=== PATIENT | male | born 1990 | race Caucasian/White ===

== ENCOUNTER 2021-03-13 19:00 | Emergency (ER) | payer OTHER, BC, SELFPAY ==
--- NOTE | ~2021-03-13 | XR_ITS ---
XR shoulder RT min 2V DATE: 03/13/2021 20:05 INDICATION: Right shoulder pain. Previous rotator cuff surgery. TECHNIQUE: 4 views COMPARISON: None FINDINGS: No fracture or dislocation, periosteal reaction or bone destruction. No abnormal soft tissu e calcification. IMPRESSION: No significant abnormality Reviewed, dictated and finalized at location [facility]. IMPRESSION: No significant abnormality
[2021-03-13 19:19] VITALS: BP 138/94; PULSE 125; RESP 16; TEMP 36.7; O2SAT 99
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
[2021-03-13 20:43] VITALS: BP 140/104; PULSE 102; RESP 18; O2SAT 100
== END 2021-03-13 20:42 | disposition home or self-care (01) ==
PROVIDERS: Emergency Provider Nurse Practitioner
DX: M25.511 Pain in right shoulder (principal); V28.4XXA Motorcycle driver injured in noncollision transport accident in traffic accident, initial encounter
CPT/HCPCS: 73030; 99283

== ENCOUNTER 2022-02-18 10:41 | Emergency (ER) | payer OTHER, BC, SELFPAY ==
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
[2022-02-18 10:49] VITALS: BP 120/91; PULSE 112; RESP 16; TEMP 36.2; O2SAT 98
== END 2022-02-18 11:28 | disposition short-term general hospital (02) ==
PROVIDERS: Emergency Provider Nurse Practitioner Family
DX: E86.0 Dehydration (principal)
CPT/HCPCS: 81003; 99212; G0463

== ENCOUNTER 2022-02-18 11:51 | Emergency (ER) | payer OTHER, BC, SELFPAY ==
--- NOTE | 2022-02-18 12:16 | ECG_ITS ---
Measurements Intervals [place] Rate: 94 P: 48 KS: 136 QRS: 43 QRSD: 98 T: 32 QT: 375 QTc: 470 Interpretive Statements SINUS RHYTHM BORDERLINE T WAVE ABNORMALITY- ANTERIOR LEADS BASELINE ARTIFACT- V2 BORDERLINE ECG Electronically Signed On 02-18-2022 12:41:19 CDT by Toñito Lawton D.O.
[2022-02-18 12:26] LABS: Basophils Percent Auto 0.5 % (0.2-1.2); Eosinophils Percent Auto 0.5 % (0-4.4); Hematocrit 47.8 % (42.0-52.0); Hemoglobin 17.5 g/dL (14.0-18.0); Immature Granulocyte Absolute 0.03 K/mm3 (0.00-0.031); Immature Granulocyte Percent A 0.4 % (0-0.5); Lymphocytes Absolute Auto 1.44 K/mm3 (0.9-3.2); Lymphocytes Percent Auto 19.8 % (18.3-44.2); Mean Corpuscular HGB Conc 36.6 g/dl (32-36); Mean Corpuscular Hemoglobin 31.1 pg (26-34); Mean Corpuscular Volume 85.1 fl (80-100); Mean Platelet Volume 10.1 fl (7.4-10.4); Neutrophils Absolute Auto 4.8 K/mm3 (1.3-6.7); Neutrophils Percent Auto 65.8 % (45.5-73.1); Platelet Count Result 205 k/mm3 (150-375); Red Blood Count 5.62 M/mm3 (4.6-6.20); White Blood Count 7.3 K/mm3 (4.5-10.0)
[2022-02-18 12:36] LABS: Alanine Aminotransferase 89 U/L (6-50); Albumin Level 5.5 g/dL (3.5-5.1); Alkaline Phosphatase 143 U/L (38-126); Anion Gap 17 mmol/L (8-16); Aspartate Amino Transferase 108 U/L (17-59); Bilirubin,Total 1.7 mg/dL (0.2-1.3); Blood Urea Nitrogen 23 mg/dL (9-20); Calcium 9.3 mg/dL (8.4-10.2); Carbon Dioxide 22 mmol/L (22-30); Chloride 89 mmol/L (98-107); Estimated CRCL calculation 46 ml/min; Estimated Glomerular Filt Rate 29; Glucose 161 mg/dL (65-110); Potassium 3.2 mmol/L (3.4-5.0); Sodium 128 mmol/L (137-145)
--- NOTE | 2022-02-18 13:09 | ED.GENADULT ---
HPI - General Adult General Chief complaint: Environmental Exposure Stated complaint: heat exhaustion Time Seen by Provider: 02/18/22 13:01 Source: patient Mode of arrival: ambulatory Limitations: no limitations History of Present Illness HPI narrative: 31-year-old male presents with generalized weakness, body aches, generalized fatigue, and dark-colored urine. Patient states the symptoms have been going on for 1 week. Patient states he has been trying to increase fluids but has become nauseated with eating and drinking. 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 Patient denies any medical history. Onset (ago): week(s) (1) Relieving factors: none Exacerbating factors: none Associated symptoms: malaise and nausea/vomiting Treatments prior to arrival: none Related Data Allergies Allergy/AdvReac Type Severity Reaction Status Date / Time No Known Allergies Allergy Unknown Verified 02/18/22 11:52 Review of Systems Review of Systems: All systems reviewed & are unremarkable except as noted in HPI and below Constitutional: Constitutional: Reports malaise and Reports weakness Eyes: Eyes: Reports no additional eye complaints ENT: Reports system reviewed and no additional complaints, except as documented Cardiovascular: Cardiovascular: Reports no additional cardiovascular complaints Respiratory: Respiratory: Reports no additional respiratory complaints Gastrointestinal: Gastrointestinal: Reports nausea Genitourinary: Genitourinary: Reports other (Dark-colored urine) Musculoskeletal: Musculoskeletal: Reports muscle weakness and Reports other (Myalgia) Integumentary/Breasts: Skin/Breast: Reports system reviewed and no additional complaints, except as docu Neurologic: Reports system reviewed and no additional complaints, except as documented Psychiatric: Psychiatric: Reports no additional psychiatric complaints Endocrine: Endocrine: Reports no additional endocrine complaints Hematologic/Lymphatic: Hematologic/Lymphatic: Reports no additional hematologic/lymphatic complaints PMFSH Past Medical History Medical History No significant past medical history Surgical History Surgical History No significant past surgical history Social History Social History (Updated 03/13/21 @ 20:29 by Ying Olivarez, KATIA) Smoking status: Never smoker Alcohol intake: never Substance use: never Exam Narrative: GENERAL: Well-appearing, well-nourished, and in no acute distress. HEAD: Normocephalic, atraumatic. EYES: PERRLA and EOMI. ENT: Nares clear, no rhinorrhea or epistaxis. Mucous membranes moist. NECK: Supple. CHEST: Clear to auscultation. No respiratory distress. HEART: Regular rate and rhythm. No murmur heard. Normal peripheral pulses. ABDOMEN: Soft, nontender, nondistended, normal active bowel sounds. EXTREMITIES: Normal range of motion. No edema. SKIN: Warm, dry, no rash. NEURO: No focal deficits. Alert and oriented x3. PSYCH: Normal mood and affect. Course Course Emergency Course: Patient given 3 L of fluid. Urine is clear at this time. Patient tolerating p.o. fluids. Patient not in rhabdo her CK level. Patient states he feels better and requesting to be discharged. We will give 2 days off work. Patient informed to increase fluid intake at work. Vital Signs Vital signs: Vital Signs Pulse Rate 78 02/18/22 13:27 Respiratory Rate 18 02/18/22 13:27 Blood Pressure 132/88 02/18/22 13:27 Pulse Oximetry 98 02/18/22 13:27 Pulse Rate 78 02/18/22 13:27 Respiratory Rate 18 02/18/22 13:27 Blood Pressure 132/88 02/18/22 13:27 Pulse Oximetry 98 02/18/22 13:27 Medical Decision Making MDM Narrative Medical decision making narrative: CK level 400 which is not indicative of rhabdomyolysis. Patient tolerating p.o. fluids will discharg
[2022-02-18] MEDS: ONDANSETRON INJ 4 MG/2 ML VIAL IV PUSH (13:22)
[2022-02-18] MEDS: SODIUM CHLORIDE 0.9% IV 1,000 ML 999 ML IV CONT ×3 (13:23→14:23)
[2022-02-18 13:27] VITALS: BP 132/88; PULSE 78; RESP 18; O2SAT 98
[2022-02-18 13:27] LABS: Creatine Kinase 419 U/L (55-170)
[2022-02-18 13:31] LABS: Appearance Urine Slightly Cloudy (Clear); Bilirubin Urine 2+ (Negative); Glucose Urine UA Negative (Negative); Ketones Urine Negative (Negative); Leukocyte Esterase Ur Negative LEU/UL (Negative); Nitrate Urine Negative (Negative); Protein Urine 3+ mg/dL (Negative); Specific Grav Ur >= 1.030 (1.001-1.035); Urobilinogen Urine 0.2 mg/dL (<2.0)
[2022-02-18 13:36] LABS: Bacteria Urine Trace /hpf; Hyaline Casts Urine 30-49 /lpf; Mucus Urine Few /lpf; Squamous Epithelial Cell Urine Rare /hpf (Few)
[2022-02-18 13:53] LABS: Add Urine Microscopic? YES; Blood Urine Trace-Intact (Negative); Color Urine Dark Yellow (Yellow)
[2022-02-18 15:27] VITALS: BP 142/98; PULSE 78; RESP 18; O2SAT 98
[2022-02-18 15:34] LABS: Creatine Kinase MB 1.4 ng/mL (0.0-2.37)
== END 2022-02-18 15:28 | disposition home or self-care (01) ==
PROVIDERS: Emergency Medicine; Emergency Provider Nurse Practitioner Family
DX: E86.0 Dehydration (principal)
CPT/HCPCS: 36415; 80053; 81001; 82550; 82553; 85025; 93005; 96361; 96374; 99284; J2405; J7030

== ENCOUNTER 2022-08-05 20:23 | Emergency (ER) | payer OTHER, BC, SELFPAY ==
[2022-08-05] VITALS (18 sets, daily range): BP systolic 128–157; BP diastolic 94–111; PULSE 99–113; RESP 15–27; TEMP 36.4; O2SAT 96–100
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
[2022-08-05] MEDS: MORPHINE SULFATE (*CRX) 4 MG/ML INJ IV PUSH ×2 (21:32→23:03)
[2022-08-05] MEDS: ONDANSETRON INJ 4 MG/2 ML VIAL IV PUSH (21:33)
[2022-08-05] MEDS: ceFAZolin 2 GM/D5W 50 ML 2 GM/50 ML BAG IVPB (21:33)
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
== END 2022-08-06 00:50 | disposition short-term general hospital (02) ==
PROVIDERS: Emergency Provider Emergency Medicine
DX: S02.841A Fracture of lateral orbital wall, right side, initial encounter for closed fracture (principal); S02.31XA Fracture of orbital floor, right side, initial encounter for closed fracture; S02.40CA Maxillary fracture, right side, initial encounter for closed fracture; S02.40EA Zygomatic fracture, right side, initial encounter for closed fracture; Y04.2XXA Assault by strike against or bumped into by another person, initial encounter
CPT/HCPCS: 70450; 70486; 72125; 96365; 96375; 96376; 99285; J0690; J2270; J2405

== ENCOUNTER 2023-01-03 14:46 | Emergency (ER) | payer OTHER, BC, SELFPAY ==
--- NOTE | ~2023-01-03 | CT_ITS ---
EXAMINATION: CT abdomen pelvis wo con DATE: 01/03/2023 18:06 INDICATION: Abdominal pain TECHNIQUE: Computed tomography (CT) of the abdomen and pelvis was performed without intravenous contr ast. The dose-length product (DLP) was 884.63 mGy-cm. Automated exposure control and iterative recons truction technique were employed. COMPARISON: None FINDINGS: Minimal dependent atelectasis is present in the lung bases. The heart size is normal. The l iver, spleen, pancreas, gallbladder, and adrenal glands are normal. The kidneys are unremarkable. No pathologically enlarged abdominal or pelvic lymph nodes are identified. No free intraperitoneal gas o r evidence of bowel obstruction. A urachal duct remnant is noted in the dome of the urinary bladder. There is mild lumbar spondylosis. IMPRESSION: 1. No CT correlate for the patient's symptoms. Reviewed, dictated and finalized at location F.
[2023-01-03 15:01] VITALS: BP 135/95; PULSE 103; RESP 16; TEMP 36.3; O2SAT 98
[2023-01-03 16:08] LABS: Appearance Urine Turbid (Clear); Bacteria Urine None Seen /hpf; Bilirubin Urine Negative (Negative); Blood Urine Negative (Negative); Color Urine Dark Yellow (Yellow); Glucose Urine UA Negative (Negative); Ketones Urine Trace mg/dL (Negative); Leukocyte Esterase Ur Negative LEU/UL (Negative); Need Manual Microscopic Reviewed; Nitrate Urine Negative (Negative); Non Pathogenic Casts 0-2; Protein Urine Negative (Negative); RBC Urine 0-2 /hpf (0-2); Specific Grav Ur 1.025 (1.001-1.035); Squamous Epithelial Cell Urine None seen /hpf (Few); Uric Acid Crystals Urine Present /hpf; Urobilinogen Urine 0.2 mg/dL (<2.0); WBC Urine 0-5 /hpf; pH Urine 5.5 (5.0-9.0)
[2023-01-03 16:10] LABS: Add Urine Microscopic? YES
[2023-01-03 18:02] LABS: Basophils Absolute Auto 0.1 K/mm3 (0.0-0.1); Basophils Percent Auto 0.7 % (0.2-1.2); Eosinophils Absolute Auto 0.2 K/mm3 (0-0.3); Eosinophils Percent Auto 2.5 % (0-4.4); Hematocrit 47.4 % (42.0-52.0); Hemoglobin 16.1 g/dL (14.0-18.0); Immature Granulocyte Absolute 0.02 K/mm3 (0.00-0.031); Immature Granulocyte Percent A 0.3 % (0-0.5); Lymphocytes Absolute Auto 1.64 K/mm3 (0.9-3.2); Mean Corpuscular Hemoglobin 30.8 pg (26-34); Mean Corpuscular Volume 90.8 fl (80-100); Mean Platelet Volume 10.4 fl (7.4-10.4); Monocytes Absolute Auto 0.7 K/mm3 (0.1-0.6); Monocytes Percent Auto 9.5 % (2.6-8.5); Neutrophils Absolute Auto 4.3 K/mm3 (1.3-6.7); Platelet Count Result 217 k/mm3 (150-375); Red Blood Count 5.22 M/mm3 (4.6-6.20); Red Cell Distribution Width 11.7 % (11.5-14.5); White Blood Count 6.8 K/mm3 (4.5-10.0)
[2023-01-03 18:19] LABS: Alanine Aminotransferase 51 U/L (6-50); Albumin Level 5.1 g/dL (3.5-5.1); Alkaline Phosphatase 99 U/L (38-126); Anion Gap 13 mmol/L (8-16); Aspartate Amino Transferase 43 U/L (17-59); Bilirubin,Total 0.7 mg/dL (0.2-1.3); Blood Urea Nitrogen 13 mg/dL (9-20); Calcium 9.4 mg/dL (8.4-10.2); Carbon Dioxide 27 mmol/L (22-30); Chloride 101 mmol/L (98-107); Estimated Glomerular Filt Rate > 60; Glucose 99 mg/dL (65-110); Potassium 3.7 mmol/L (3.4-5.0); Sodium 141 mmol/L (137-145)
--- NOTE | 2023-01-03 18:52 | ED.GENADULT ---
HPI - General Adult General Chief complaint: Urogenital-Male Stated complaint: dysuria Time Seen by Provider: 01/03/23 17:33 Source: RN notes reviewed History of Present Illness HPI narrative: Patient presents emergency department from home for difficulty urinating. Patient states for the past 1 week he has been having some trouble urinating he states is difficult to start his stream and sometimes he has to really bear down or even grab his legs to start his stream. States that once he is able to start his stream he is able to urinate states he has noted some intermittent lower abdominal pain but denies any pain into his scrotum or into his penis. States that urination is not painful and he denies any risk of sexually transmitted disease and denies any urinary discharge she states that he has had some mild intermittent nausea and 1 episode of emesis in the morning over the past week but denies any current nausea or vomiting he denies any fevers or chills flank pain or any other symptoms Related Data Home Medications Medication Instructions Recorded Confirmed buprenorphine 12 mg-naloxone 3 mg film 01/03/23 01/03/23 sublingual film clonidine HCl 0.1 mg tablet mg 01/03/23 lisinopril 10 tablet 01/03/23 mg-hydrochlorothiazide 12.5 mg tablet lorazepam 0.5 mg tablet mg 01/03/23 ondansetron HCl 4 mg tablet mg 01/03/23 Allergies Allergy/AdvReac Type Severity Reaction Status Date / Time No Known Allergies Allergy Unknown Verified 01/03/23 17:30 Review of Systems Review of Systems: Gen.: Denies fevers or chills ENT: Denies congestion Respiratory: Denies shortness of breath or cough CV: Denies chest pain or palpitations GI: see HPI den reports difficulty starting urinary stream Musculoskeletal: Denies back pain or muscle pain Neuro: Denies numbness, tingling, weakness or focal weakness Skin: Denies rash Except as documented, all other systems reviewed and negative PMFSH Past Medical History Medical History No significant past medical history Surgical History Surgical History No significant past surgical history Social History Social History Smoking status: Never smoker Alcohol intake: never Substance use: never Living arrangements: with family Exam Narrative: APPEARANCE: No acute distress, nontoxic, resting in bed EYES: EOMI HEENT: Normocephalic, atraumatic, OMM RESPIRATORY: No respiratory distress Clear to auscultation bilaterally with no rhonchi wheezing or rales. CARDIOVASCULAR: Regular rate and rhythm without murmurs rubs or gallops. ABDOMINAL: Soft, nontender, nondistended, no rebound or guarding no hernias palpated : No phimosis or paraphimosis no skin lesions, no scrotal swelling or erythema no testicular tenderness no hernias palpated MUSCULOSKELETAl: Moves all extremities. No clubbing, cyanosis or edema. NEURO: Awake and alert. Following commands, speech normal, no focal deficits SKIN:: Warm, dry. No rashes lesions or abrasions PSYCHIATRIC: Normal affect/mood, Course Course Emergency Course: Discussed with Dr. Cabral for urology presentation work-up with no signs of urinary retention agrees with plan for Flomax for week of follow-up with urology as an outpatient Discussed with patient results of workup and diagnosis. Discussed need for follow-up with primary care, proper use of medication, and reasons to return to the emergency department. Patient understands and agrees to current treatment plan Vital Signs Vital signs: Vital Signs Temperature 97.3 F L 01/03/23 15:01 Pulse Rate 103 H 01/03/23 15:01 Respiratory Rate 16 01/03/23 15:01 Blood Pressure 135/95 H 01/03/23 15:01 Pulse Oximetry 98 01/03/23 15:01 Oxygen Delivery Room Air 01/03/23 15:01 Temperature 97.3 F L 01/03/23 15:01
[2023-01-03] MEDS: TAMSULOSIN HCL 0.4 MG CAPSULE PO (19:00)
[2023-01-03 19:05] VITALS: BP 130/72; PULSE 70; RESP 16; O2SAT 98
== END 2023-01-03 19:10 | disposition home or self-care (01) ==
PROVIDERS: Emergency Medicine; Emergency Provider Emergency Medicine
DX: R30.0 Dysuria (principal)
CPT/HCPCS: 36415; 74176; 80053; 81001; 85025; 99284; A9270

== ENCOUNTER 2023-02-01 10:47 | Emergency (ER) | payer OTHER, BC, SELFPAY ==
--- NOTE | 2023-02-01 10:53 | ED.URI ---
HPI - URI/Sore Throat General Chief Complaint: Upper Respiratory Infection Stated Complaint: congestion,bodyache Time Seen by Provider: 02/01/23 10:52 Source: patient Mode of arrival: ambulatory Limitations: no limitations History of Present Illness HPI Narrative: Patient is a 32-year-old male who presents with congestion, body aches and cough since Tuesday morning. States he has been taking Mucinex and did take a Benadryl today with mild relief. Patient reports he has mild seasonal allergies but does not take it daily allergy medication. States he had 1 episode of vomiting and 1 episode of diarrhea yesterday pain. Denies any fever, chills, ear pain, sore throat and shortness of breath. History having his tonsils and adenoids removed due to frequent strep as a child. Denies any sick contacts. Took COVID test at home and it was negative Related Data Home Medications Medication Instructions Recorded Confirmed buprenorphine 12 mg-naloxone 3 mg 2 film sublingual DAILY 02/01/23 02/01/23 sublingual film clonidine HCl 0.1 mg tablet 0.1 mg PO TID 02/01/23 02/01/23 lisinopril 10 1 tablet PO DAILY 02/01/23 02/01/23 mg-hydrochlorothiazide 12.5 mg tablet lorazepam 0.5 mg tablet 0.5 mg PO DAILY 02/01/23 02/01/23 Allergies Allergy/AdvReac Type Severity Reaction Status Date / Time No Known Allergies Allergy Unknown Verified 02/01/23 11:06 Review of Systems Review of Systems: All systems reviewed & are unremarkable except as noted in HPI and below Constitutional: Constitutional: Reports body ache(s), Denies chills, Denies fatigue, Denies fever(s), Denies headache(s), Denies malaise and Denies weakness Eyes: Eyes: Denies blurry vision, Denies itchy eyes and Denies loss of vision ENT: Denies otalgia, Denies headache(s), Reports nasal congestion, Denies sinus pain and Denies sore throat Cardiovascular: Cardiovascular: Denies chest pain, Denies irregular heart rhythm and Denies dyspnea Respiratory: Respiratory: Denies cough and Denies dyspnea Gastrointestinal: Gastrointestinal: Denies abdominal pain, Denies diarrhea, Denies nausea and Denies vomiting Musculoskeletal: Musculoskeletal: Denies back pain, Denies myalgias and Denies arthralgias Integumentary/Breasts: Skin/Breast: Denies pruritus and Denies rash Neurologic: Denies headache(s), Denies loss of vision and Denies weakness Psychiatric: Psychiatric: Reports no additional psychiatric complaints Endocrine: Endocrine: Denies fatigue Allergic/Immunologic: Allergic/Immunologic: Denies itchy eyes PMFSH Past Medical History Medical History No significant past medical history Surgical History Surgical History No significant past surgical history Social History Social History Smoking status: Never smoker Alcohol intake: never Substance use: never Living arrangements: with family Comments At time of signature, agree with nursing past medical, surgical, social and family history. There is no relevant family history pertinent to the presenting complaint. Exam Const: General: cooperative, healthy appearing, comfortable, no acute distress and well nourished Nutritional Appearance: well nourished Orientation/consciousness: patient oriented x3 Limitations: no limitations HENMT: Head: normal to inspection, normocephalic and atraumatic Ears: hearing grossly normal bilaterally, external ears normal, TM's normal bilaterally, EAC's normal and no periauricular adenopathy Face/Nose/Sinus: Normal external nose present, Abnormal mucous membranes and turbinates present erythematous bilateral and diffuse, normal facial exam, sinuses nontender and face symmetric Face and sinus: normal facial exam, sinuses nontender and face symmetric Mouth: Yes Normal oral and palatal mucosa present, Yes lip no
[2023-02-01 11:02] VITALS: BP 127/75; PULSE 72; RESP 16; TEMP 36.5; O2SAT 100
== END 2023-02-01 11:25 | disposition home or self-care (01) ==
PROVIDERS: Emergency Provider Nurse Practitioner Family
DX: J06.9 Acute upper respiratory infection, unspecified (principal)
CPT/HCPCS: 99203; G0463

== ENCOUNTER 2023-05-13 15:02 | Emergency (ER) | payer OTHER, BC, SELFPAY ==
--- NOTE | 2023-05-13 15:07 | ED.URI ---
HPI - URI/Sore Throat General Chief Complaint: Nausea/Vomiting/Diarrhea Stated Complaint: bodyaches,nausea Time Seen by Provider: 05/13/23 15:06 Source: patient Mode of arrival: ambulatory Limitations: no limitations History of Present Illness HPI Narrative: Papi is a 33-year-old male patient presenting to the clinic today with complaints of body aches, chills, diarrhea, slight headache, mild cough, and nausea x3 days. He reports no known fever. States he woke up last night in a sweat but was unable to check his temperature at that time. Denies any vomiting. Is on Suboxone and has not missed any doses of this. States that he has been having some green diarrhea. Last bowel movement was yesterday. No known sick contacts Related Data Home Medications Medication Instructions Recorded Confirmed buprenorphine 12 mg-naloxone 3 mg 2 film sublingual DAILY 02/01/23 05/13/23 sublingual film clonidine HCl 0.1 mg tablet 0.1 mg PO TID 02/01/23 05/13/23 lisinopril 10 1 tablet PO DAILY 02/01/23 05/13/23 mg-hydrochlorothiazide 12.5 mg tablet ondansetron HCl 8 mg tablet 8 mg PO DAILY 05/13/23 05/13/23 trazodone 50 mg tablet 50 mg PO DAILY 05/13/23 05/13/23 Allergies Allergy/AdvReac Type Severity Reaction Status Date / Time No Known Allergies Allergy Unknown Verified 05/13/23 15:23 Review of Systems Review of Systems: Pertinent positives per HPI. Patient denies any fever, rash, visual changes, dizziness, sore throat, shortness of breath, chest pain, palpitations, vomiting, constipation, abdominal pain, or any urinary issues. [facility] Past Medical History Medical History No significant past medical history Surgical History Surgical History No significant past surgical history Social History Social History Smoking status: Never smoker Alcohol intake: never Substance use: never Living arrangements: with family Comments At the time of my signature, I reviewed and agree with the nursing past medical, surgical, social, and family history. There is no relevant family history pertinent to the patient complaint. Exam Narrative: General: Well-developed, well nourished, in no apparent distress Head: Normocephalic, atraumatic Eyes: Pupils equally round and reactive to light bilaterally, EOM intact, sclera and conjunctive clear, no discharge, lids normal Ears: TMs intact and clear, ear canals clear, no drainage, grossly hearing normal. Nose: Nares patent, no discharge, no inflammation, no sinus tenderness. Mouth: Oropharynx without lesions or masses, good dentition, MMM. Neck: Supple, trachea midline, no enlargement of anterior or posterior cervical nodes, no thyroid masses or goiter palpable. Cardio: Regular rate and rhythm, s1 and s2 normal, no murmur appreciated. Resp: Clear to auscultation bilaterally anteriorly and posteriorly, no rhonchi, rales, wheezing or rubs Abdomen: Soft, pliable, nondistended, bowel sounds present all 4 quadrants, nontender to palpation, no organomegaly, no CVAT tenderness Course Course Emergency Course: Portions of this record may have been created with voice recognition software. Level of Care: Express Care Visit Vital Signs Vital signs: Vital signs reviewed MDM - URI/Sore Throat MDM Narrative Medical decision making narrative: At the time of visit patient is resting comfortably on the exam table. COVID and influenza testing was performed. COVID testing was negative however patient is positive for influenza A. Supportive measures were discussed with the patient he voiced understanding discharge instructions and agrees to treatment plan. Differential Diagnosis Differential diagnosis: Likely upper respiratory infection, otitis media, sinusitis, viral infection, bronchitis, influenza
[2023-05-13 15:10] VITALS: BP 112/63; PULSE 92; RESP 18; TEMP 36.5; O2SAT 98
== END 2023-05-13 15:34 | disposition home or self-care (01) ==
PROVIDERS: Emergency Provider Nurse Practitioner Family
DX: J10.1 Influenza due to other identified influenza virus with other respiratory manifestations (principal); Z20.822 Contact with and (suspected) exposure to COVID-19; I10 Essential (primary) hypertension; F41.9 Anxiety disorder, unspecified
CPT/HCPCS: 87426; 87804; 99213; C9803; G0463

== ENCOUNTER 2023-07-13 12:16 | Emergency (ER) | payer OTHER, BC, SELFPAY ==
[2023-07-13 12:23] VITALS: BP 97/62; PULSE 107; RESP 16; TEMP 36.1; O2SAT 98
--- NOTE | 2023-07-13 12:27 | ED.DIZZY ---
HPI - Dizziness General Chief Complaint: Dizziness Stated Complaint: Dizziness,Slurred Speech Time Seen by Provider: 07/13/23 12:42 Mode of arrival: ambulatory Limitations: no limitations History of Present Illness HPI Narrative: 33-year-old male presents with concern for dizziness, lightheadedness, slurred speech. Reports symptoms started on Tuesday. Reports symptoms had improved quite a bit but he still feels lightheaded today. Reports he had of severe headache on Tuesday. He denies weakness in any extremity. He denies fever, aches, chills, sweats. 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 MD elicited complaint: dizziness Related Data Home Medications Medication Instructions Recorded Confirmed buprenorphine 12 mg-naloxone 3 mg 2 film sublingual DAILY 02/01/23 07/13/23 sublingual film clonidine HCl 0.1 mg tablet 0.1 mg PO TID 02/01/23 07/13/23 lisinopril 10 1 tablet PO DAILY 02/01/23 07/13/23 mg-hydrochlorothiazide 12.5 mg tablet trazodone 50 mg tablet 50 mg PO DAILY 05/13/23 07/13/23 chlordiazepoxide HCl 10 mg capsule 10 mg DIRECTED 07/13/23 07/13/23 Allergies Allergy/AdvReac Type Severity Reaction Status Date / Time No Known Allergies Allergy Unknown Verified 05/13/23 15:23 Review of Systems Review of Systems: CONSTITUTIONAL: Denies malaise, chills, sweats, or fever. Reports lightheadedness EYES: Reports impaired depth perception on Tuesday ENT: Denies rhinorrhea, congestion, sinus pain, otalgia or sore throat. CARDIOVASCULAR: Denies chest pain, palpitations, or edema. RESPIRATORY: Denies cough or dyspnea. GASTROINTESTINAL: Denies abdominal pain, nausea, vomiting, diarrhea, bloody, or mucous stools. GENITOURINARY: Denies dysuria or hematuria. SKIN: Denies rash or itching. MUSCULOSKELETAL: Denies back pain, joint pain, or myalgia. NEUROLOGIC: Reports dizziness. Reports severe headache 2 days ago PSYCHIATRIC: Denies anxiety or depression. All systems reviewed & are unremarkable except as noted in HPI and below PMFSH Past Medical History Medical History No significant past medical history Surgical History Surgical History No significant past surgical history Social History Social History Smoking status: Never smoker Alcohol intake: never Substance use: never Living arrangements: with family Comments At time of signature, agree with nursing past medical, surgical, social and family history. There is no relevant family history pertinent to the presenting complaint Exam Narrative: GENERAL: Well-appearing, well-nourished, and in no acute distress. HEAD: Normocephalic, atraumatic. EYES: PERRLA, sclera clear, and EOMI. No nystagmus. ENT: Nares clear. Mucous membranes moist. TM pearly page with sharp light reflex bilaterally; no tragal tenderness. Oropharynx without erythema or lesions. Tonsils not enlarged and without exudate. NECK: Supple. No lymphadenopathy. No jugular venous distension, thyromegaly, or carotid bruits. Carotids were easily palpable bilaterally. CHEST: No respiratory distress. Clear to auscultation. No bony deformities, no asymmetry. Speaks in full sentences. HEART: Regular rate and rhythm. No murmur heard. Normal peripheral pulses. EXTREMITIES: Normal range of motion. No edema. Normal strength and sensation. SKIN: Warm, dry, no visible rash. NEURO: Alert and oriented x3. No focal deficits. Cranial nerves II through XII grossly intact PSYCH: Normal mood and affect Course Course Emergency Course: Patient is aware of , understands and agrees to be transferred to the emergency department. Patient to proceed directly to the emergency department, is being driven by a family member Portions of this record
== END 2023-07-13 12:58 | disposition short-term general hospital (02) ==
LOC: EXPTROY 12:21
PROVIDERS: Emergency Provider Nurse Practitioner
DX: R42 Dizziness and giddiness (principal); Z79.899 Other long term (current) drug therapy
CPT/HCPCS: 99213; G0463

== ENCOUNTER 2023-07-13 13:07 | Emergency (ER) | payer OTHER, BC, SELFPAY ==
[2023-07-13] VITALS (12 sets, daily range): BP systolic 89–123; BP diastolic 55–82; PULSE 63–101; RESP 13–17; TEMP 36.6–36.7; O2SAT 98–100
--- NOTE | ~2023-07-13 | CT_ITS ---
EXAMINATION: CT brain wo con DATE: 07/13/2023 17:19 INDICATION: Dizziness TECHNIQUE: Computed tomography (CT) of the head was performed without intravenous contrast. Sagittal and coronal reconstructions were performed. The mA was adjusted according to patient size. Iterative reconstruction technique was employed. The dose-length product was 605.33 mGy-cm. COMPARISON: head CT dated 08/05/2022 FINDINGS: No acute intracranial hemorrhage, acute infarction or abnormal extra axial fluid collection. Ventricl es are normal and symmetric. No mass/mass effect. Mild mucosal thickening the ethmoid sinuses. The or bits and mastoid air cells are normal. IMPRESSION: 1. No acute intracranial process. Reviewed, dictated and finalized at location A.
--- NOTE | 2023-07-13 13:16 | ECG_ITS ---
Measurements Intervals [place] Rate: 97 P: 33 TN: 139 QRS: 30 QRSD: 93 T: 3 QT: 366 QTc: 466 Interpretive Statements SINUS RHYTHM NONSPECIFIC T-WAVE ABNORMALITY COMPARED TO ECG 02/18/2022 12:20:46 T-WAVE ABNORMALITY NOW PRESENT Electronically Signed On 07-13-2023 19:16:40 CDT by Pepper Ho M.D.
[2023-07-13 14:53] LABS: Basophils Absolute Auto 0.1 K/mm3 (0.0-0.1); Basophils Percent Auto 0.8 % (0.2-1.2); Eosinophils Absolute Auto 0.2 K/mm3 (0-0.3); Eosinophils Percent Auto 2.1 % (0-4.4); Hematocrit 42.6 % (42.0-52.0); Hemoglobin 14.4 g/dL (14.0-18.0); Immature Granulocyte Absolute 0.05 K/mm3 (0.00-0.031); Immature Granulocyte Percent A 0.5 % (0-0.5); Lymphocytes Absolute Auto 1.92 K/mm3 (0.9-3.2); Lymphocytes Percent Auto 21.1 % (18.3-44.2); Mean Corpuscular HGB Conc 33.8 g/dl (32-36); Mean Corpuscular Hemoglobin 31.8 pg (26-34); Mean Platelet Volume 10.7 fl (7.4-10.4); Monocytes Percent Auto 11.1 % (2.6-8.5); Neutrophils Absolute Auto 5.9 K/mm3 (1.3-6.7); Neutrophils Percent Auto 64.4 % (45.5-73.1); Platelet Count Result 214 k/mm3 (150-375); Red Blood Count 4.53 M/mm3 (4.6-6.20); Red Cell Distribution Width 11.7 % (11.5-14.5); White Blood Count 9.1 K/mm3 (4.5-10.0)
[2023-07-13 15:05] LABS: Alanine Aminotransferase 53 U/L (6-50); Albumin Level 4.8 g/dL (3.5-5.1); Alkaline Phosphatase 71 U/L (38-126); Anion Gap 9 mmol/L (8-16); Aspartate Amino Transferase 59 U/L (17-59); Bilirubin,Total 0.7 mg/dL (0.2-1.3); Blood Urea Nitrogen 16 mg/dL (9-20); Calcium 9.2 mg/dL (8.4-10.2); Carbon Dioxide 28 mmol/L (22-30); Chloride 100 mmol/L (98-107); Estimated CRCL calculation 92 ml/min; Estimated Glomerular Filt Rate > 60; Glucose 104 mg/dL (65-110); Potassium 4.1 mmol/L (3.4-5.0); Sodium 137 mmol/L (137-145)
[2023-07-13] MEDS: SODIUM CHLORIDE 0.9% IV 1,000 ML 999 ML IV CONT (17:15)
[2023-07-13 17:37] LABS: Ethanol < 10 mg/dL (<10)
--- NOTE | 2023-07-13 18:34 | ED.DIZZY ---
HPI - Dizziness General Chief Complaint: Dizziness Stated Complaint: dizzy, brain fog Time Seen by Provider: 07/13/23 17:08 Source: patient Mode of arrival: ambulatory Limitations: no limitations History of Present Illness HPI Narrative: This is a 33 year old male that presents to the ER for fatigue. Reports ongoing over the last couple of weeks. Reports associated lightheadedness and dizziness/off balance. Reports he takes trazodone for sleep. He has tried to wean himself off of this with improvement in his symptoms. Denies fever, chest pain, shortness of breath or vomiting. Related Data Home Medications Medication Instructions Recorded Confirmed buprenorphine 12 mg-naloxone 3 mg 2 film sublingual DAILY 02/01/23 07/13/23 sublingual film clonidine HCl 0.1 mg tablet 0.1 mg PO TID 02/01/23 07/13/23 lisinopril 10 1 tablet PO DAILY 02/01/23 07/13/23 mg-hydrochlorothiazide 12.5 mg tablet trazodone 50 mg tablet 50 mg PO DAILY 05/13/23 07/13/23 chlordiazepoxide HCl 10 mg capsule 10 mg DIRECTED 07/13/23 07/13/23 Allergies Allergy/AdvReac Type Severity Reaction Status Date / Time No Known Allergies Allergy Unknown Verified 05/13/23 15:23 Review of Systems Review of Systems: CONSTITUTIONAL: Denies fever, CARDIOVASCULAR: Denies chest pain, or edema. RESPIRATORY: Denies dyspnea. GASTROINTESTINAL: Reports nausea. Denies vomiting NEUROLOGIC: Denies focal numbness, or weakness. All systems reviewed & are unremarkable except as noted in HPI and below PMFSH Past Medical History Medical History (Updated 07/13/23 @ 21:28 by Keyonna Fine PA-C) History of hypertension Surgical History Surgical History No significant past surgical history Social History Social History (Updated 07/13/23 @ 18:36 by Keyonna Fine PA-C) Smoking status: Never smoker Alcohol intake: never Substance use: former Substance use type: opiates Living arrangements: with family Exam Narrative: GENERAL: Well-appearing, well-nourished, and in no acute distress. HEAD: Normocephalic, atraumatic. EYES: PERRLA and EOMI. ENT: Nares clear, no rhinorrhea or epistaxis. Mucous membranes moist. Oropharynx without tonsillar hypertrophy exudate or other lesions. Bilateral TMs pearly page non-bulging NECK: Supple. No adenopathy or masses. No JVD CHEST: Clear to auscultation. No respiratory distress. No wheezes rales or rhonchi HEART: Regular rate and rhythm. No murmur heard. Normal peripheral pulses. ABDOMEN: Soft, nontender, nondistended, normal active bowel sounds. EXTREMITIES: Normal range of motion. No edema. Strength equal in bilateral upper and lower extremities (5/5) SKIN: Warm, dry, no rash. NEURO: No focal deficits. Alert and oriented x3. Cranial nerves II through XII grossly intact. Normal [id number] PSYCH: Normal mood and affect Course Course Emergency Course: Patient was updated on work-up. Resting comfortably. Able to ambulate in the virgen with a steady gait. Agrees with plan of care Vital Signs Vital signs: Vital Signs Temperature 97.9 F 07/13/23 13:19 Pulse Rate 101 H 07/13/23 13:19 Respiratory Rate 14 07/13/23 13:19 Blood Pressure 123/74 07/13/23 13:19 Pulse Oximetry 98 07/13/23 13:19 Temperature 98.0 F 07/13/23 18:06 Pulse Rate 82 07/13/23 19:30 Respiratory Rate 16 07/13/23 19:30 Blood Pressure 116/74 07/13/23 19:30 Pulse Oximetry 99 07/13/23 19:30 MDM - Dizziness MDM Narrative Medical decision making narrative: Patient presents to the emergency department for lightheadedness/dizziness as well as fatigue. Ongoing over the last several days. He is afebrile and nontoxic-appearing. He is neurologically intact. Orthostatic upon arrival. Hydrated with a liter of IV fluids. CBC and metabolic panel without concerning findings. TSH is normal. UA without evidence of infection. Urine drug scre
[2023-07-13] MEDS: ONDANSETRON INJ 4 MG/2 ML VIAL IV PUSH (18:57)
[2023-07-13] MEDS: MECLIZINE HCL 25 MG TABLET PO (18:57)
[2023-07-13 19:15] LABS: Appearance Urine Clear (Clear); Bilirubin Urine Negative (Negative); Blood Urine Negative (Negative); Color Urine Yellow (Yellow); Glucose Urine UA Negative (Negative); Ketones Urine Negative (Negative); Leukocyte Esterase Ur Negative LEU/UL (Negative); Nitrate Urine Negative (Negative); Protein Urine Negative (Negative); Specific Grav Ur 1.013 (1.001-1.035); Urobilinogen Urine 0.2 mg/dL (<2.0); pH Urine 6.5 (5.0-9.0)
--- NOTE | 2023-07-13 19:15 | PC.NURSE ---
Assumed care of pt from KRISTI Pritchard at this time.
[2023-07-13 19:34] LABS: Amphetamine Screen Urine Negative (Negative); Barbiturate Screen Urine Negative (Negative); Benzodiazepines Screen Urine Positive (Negative); Cannabinoid Screen Urine Positive (Negative); Cocaine Screen Urine Negative (Negative); Methadone Screen Urine Negative (Negative); Opiate Screen Urine Negative (Negative); Phencyclidine Screen Urine Negative (Negative)
[2023-07-13 19:36] LABS: Add Urine Microscopic? NO
== END 2023-07-13 21:39 | disposition home or self-care (01) ==
PROVIDERS: Preventive Medicine Aerospace Medicine; Emergency Provider Physician Assistant
DX: I95.1 Orthostatic hypotension (principal); I10 Essential (primary) hypertension
CPT/HCPCS: 36415; 70450; 80053; 80307; 81003; 84443; 85025; 85055; 93005; 96361; 96374; 99284; A9270; J2405; J7030

== ENCOUNTER 2023-07-30 00:12 | Emergency (ER) | payer OTHER, BC, SELFPAY ==
[2023-07-30] VITALS (20 sets, daily range): BP systolic 113–123; BP diastolic 73–81; PULSE 58–75; RESP 11–22; TEMP 36.7; O2SAT 93–100
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
--- NOTE | 2023-07-30 00:33 | ECG_ITS ---
Measurements Intervals [place] Rate: 65 P: 14 NE: 184 QRS: 25 QRSD: 101 T: 18 QT: 417 QTc: 436 Interpretive Statements SINUS RHYTHM NORMAL ELECTROCARDIOGRAM COMPARED TO ECG 07/13/2023 13:24:10 HEART RATE REDUCED, NO OTHER DIFFERENCE Electronically Signed On 07-30-2023 8:53:37 CDT by Bhanu Gutierrez M.D.
[2023-07-30] MEDS: SODIUM CHLORIDE 0.9% IV 1,000 ML 999 ML IV CONT (01:06)
[2023-07-30 01:35] LABS: Basophils Percent Auto 0.8 % (0.2-1.2); Eosinophils Absolute Auto 0.2 K/mm3 (0-0.3); Eosinophils Percent Auto 3.2 % (0-4.4); Hematocrit 33.7 % (42.0-52.0); Hemoglobin 11.5 g/dL (14.0-18.0); Immature Granulocyte Absolute 0.01 K/mm3 (0.00-0.031); Immature Granulocyte Percent A 0.2 % (0-0.5); Lymphocytes Absolute Auto 1.65 K/mm3 (0.9-3.2); Lymphocytes Percent Auto 32.5 % (18.3-44.2); Mean Corpuscular HGB Conc 34.1 g/dl (32-36); Mean Corpuscular Hemoglobin 31.9 pg (26-34); Mean Corpuscular Volume 93.6 fl (80-100); Mean Platelet Volume 10.4 fl (7.4-10.4); Monocytes Absolute Auto 0.5 K/mm3 (0.1-0.6); Monocytes Percent Auto 9.9 % (2.6-8.5); Neutrophils Absolute Auto 2.7 K/mm3 (1.3-6.7); Neutrophils Percent Auto 53.4 % (45.5-73.1); Platelet Count Result 200 k/mm3 (150-375); White Blood Count 5.1 K/mm3 (4.5-10.0)
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
[2023-07-30 01:44] LABS: Ethanol < 10 mg/dL (<10); Lactic Acid Reflex 0.8 mmol/L (0.7-2.0)
[2023-07-30 01:46] LABS: Alanine Aminotransferase 32 U/L (6-50); Albumin Level 4.3 g/dL (3.5-5.1); Alkaline Phosphatase 53 U/L (38-126); Anion Gap 8 mmol/L (8-16); Aspartate Amino Transferase 36 U/L (17-59); Bilirubin,Total 0.5 mg/dL (0.2-1.3); Blood Urea Nitrogen 12 mg/dL (9-20); Calcium 8.6 mg/dL (8.4-10.2); Carbon Dioxide 26 mmol/L (22-30); Chloride 104 mmol/L (98-107); Estimated CRCL calculation 142 ml/min; Estimated Glomerular Filt Rate > 60; Glucose 94 mg/dL (65-110); Magnesium 1.8 mg/dL (1.6-2.3); Potassium 3.7 mmol/L (3.4-5.0); Sodium 138 mmol/L (137-145)
[2023-07-30 02:47] LABS: Appearance Urine Clear (Clear); Bacteria Urine None Seen /hpf; Bilirubin Urine Negative (Negative); Color Urine Yellow (Yellow); Glucose Urine UA Negative (Negative); Ketones Urine Negative (Negative); Leukocyte Esterase Ur Negative LEU/UL (Negative); Nitrate Urine Negative (Negative); Non Pathogenic Casts 0-2; Protein Urine Negative (Negative); Specific Grav Ur 1.016 (1.001-1.035); Squamous Epithelial Cell Urine None seen /hpf (Few); Urobilinogen Urine 0.2 mg/dL (<2.0); WBC Urine 0-5 /hpf
[2023-07-30 02:57] LABS: Amphetamine Screen Urine Negative (Negative); Barbiturate Screen Urine Negative (Negative); Benzodiazepines Screen Urine Positive (Negative); Cannabinoid Screen Urine Positive (Negative); Cocaine Screen Urine Negative (Negative); Methadone Screen Urine Negative (Negative); Opiate Screen Urine Positive (Negative); Phencyclidine Screen Urine Negative (Negative)
[2023-07-30 03:03] LABS: Add Urine Microscopic? YES
--- NOTE | 2023-07-30 06:44 | PC.NURSE ---
This RN notified Eber, pt's father about discharge plan and for transportation for pt to have a ride home. Pt family member verbalized understanding and agreed to come picking supervisor pt from the ED.
== END 2023-07-30 06:50 | disposition home or self-care (01) ==
PROVIDERS: Emergency Provider Emergency Medicine
DX: R53.1 Weakness (principal); F11.20 Opioid dependence, uncomplicated; I10 Essential (primary) hypertension; V48.5XXA Car driver injured in noncollision transport accident in traffic accident, initial encounter
CPT/HCPCS: 36415; 70450; 71260; 72125; 74177; 80053; 80307; 81001; 83605; 83735; 85025; 93005; 96360; 96361; 99284; J7030; Q9967

== ENCOUNTER 2023-08-20 12:09 | Emergency (ER) | payer OTHER, MEDICAID, SELFPAY ==
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
[2023-08-20 12:21] VITALS: BP 123/90; PULSE 115; RESP 18; TEMP 36.3; O2SAT 100
== END 2023-08-20 12:39 | disposition home or self-care (01) ==
PROVIDERS: Emergency Provider Nurse Practitioner Family
DX: N30.01 Acute cystitis with hematuria (principal); I10 Essential (primary) hypertension
CPT/HCPCS: 81003; 87086; 99213; G0463

== ENCOUNTER 2023-09-30 13:09 | Emergency (ER) | payer BC, SELFPAY ==
--- NOTE | 2023-09-30 13:23 | ED.URI ---
HPI - URI/Sore Throat General Chief Complaint: Upper Respiratory Infection Stated Complaint: bodyaches,congestion Time Seen by Provider: 09/30/23 13:23 Source: patient Mode of arrival: ambulatory Limitations: no limitations History of Present Illness HPI Narrative: Papi is a 33-year-old male patient presenting to the clinic today with complaints of body aches, headache, runny nose, and congestion x1 day. He reports he would also like a rash looked at on his right forearm. States he has had a rash to the right forearm for several weeks. MD elicited complaint: sore throat and nasal congestion Related Data Home Medications Medication Instructions Recorded Confirmed buprenorphine 12 mg-naloxone 3 mg 2 film sublingual DAILY 02/01/23 09/30/23 sublingual film clonidine HCl 0.1 mg tablet 0.1 mg PO TID 02/01/23 09/30/23 lisinopril 10 1 tablet PO DAILY 02/01/23 09/30/23 mg-hydrochlorothiazide 12.5 mg tablet chlordiazepoxide HCl 10 mg capsule 10 mg DIRECTED 07/13/23 09/30/23 Allergies Allergy/AdvReac Type Severity Reaction Status Date / Time No Known Allergies Allergy Unknown Verified 09/30/23 13:33 Review of Systems Review of Systems: Pertinent positives per HPI. Patient denies any fever, chills, rash, headache, visual changes, dizziness, shortness of breath, chest pain, palpitations, nausea, vomiting, diarrhea, constipation, abdominal pain, or any urinary issues. PMFSH Past Medical History Medical History History of hypertension Surgical History Surgical History No significant past surgical history Social History Social History Smoking status: Never smoker Alcohol intake: never Substance use: former Substance use type: opiates Living arrangements: with family Comments At the time of my signature, I reviewed and agree with the nursing past medical, surgical, social, and family history. There is no relevant family history pertinent to the patient complaint. Exam Narrative: General: Well-developed, well nourished, in no apparent distress Head: Normocephalic, atraumatic Eyes: Pupils equally round and reactive to light bilaterally, EOM intact, sclera and conjunctive clear, no discharge, lids normal Ears: TMs intact and clear, ear canals clear, no drainage, grossly hearing normal. Nose: Nares patent, clear nasal discharge, no inflammation, no sinus tenderness. Mouth: Oral pharynx without lesions or masses, good dentition, MMM. Neck: Supple, trachea midline, no enlargement of anterior or posterior cervical nodes, no thyroid masses or goiter palpable. Cardio: Regular rate and rhythm, s1 and s2 normal, no murmur appreciated. Resp: Clear to auscultation bilaterally, no rhonchi, rales, wheezing or rubs. Integumentary: [place], warm, and dry, intact without lesion, red, raised, scaly circular rash with central clearing to the right antecubital Course Course Emergency Course: Portions of this record may have been created with voice recognition software. Level of Care: Express Care Visit Vital Signs Vital signs: Vital signs reviewed MDM - URI/Sore Throat MDM Narrative Medical decision making narrative: At the time of visit patient is resting comfortably on the exam table. Patient appears to be nontoxic. I suspect patient has tinea corpus to the right antecubital, clotrimazole cream was sent to the pharmacy. COVID and influenza testing was performed was negative. Suspect patient has URI/viral syndrome. Supportive measures were discussed with the patient and they voiced understanding discharge instructions and agrees to treatment plan. Return precautions reviewed Differential Diagnosis Differential diagnosis: Likely upper respiratory infection, otitis media, sinusitis, viral infection, bronchitis, influenza,
[2023-09-30 13:26] VITALS: BP 138/74; PULSE 66; RESP 18; TEMP 37.2; O2SAT 100
== END 2023-09-30 14:20 | disposition home or self-care (01) ==
PROVIDERS: Emergency Provider Nurse Practitioner Family
DX: J06.9 Acute upper respiratory infection, unspecified (principal); B34.9 Viral infection, unspecified; B35.4 Tinea corporis; Z20.822 Contact with and (suspected) exposure to COVID-19; I10 Essential (primary) hypertension
CPT/HCPCS: 87426; 87804; 99213; C9803; G0463

== ENCOUNTER 2023-11-11 13:44 | Emergency (ER) | payer BC, SELFPAY ==
[2023-11-11 14:01] VITALS: BP 102/61; PULSE 73; RESP 18; TEMP 36.4; O2SAT 100
--- NOTE | 2023-11-11 14:11 | ED.URI ---
HPI - URI/Sore Throat General Chief Complaint: Upper Respiratory Infection Stated Complaint: bodyache,nausea Time Seen by Provider: 11/11/23 14:11 Source: patient, RN notes reviewed and old records reviewed Mode of arrival: ambulatory Limitations: no limitations History of Present Illness HPI Narrative: 33-year-old male presents to the [facility] with complaints body aches and nausea with vomiting yesterday. Denies any nausea or vomiting today. 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 Patient is concerned for the flu. Patient denies any fevers, chest pain, abdominal pain Patient states that he feels better today than he did yesterday Onset (ago): day(s) (1) Related Data Home Medications Medication Instructions Recorded Confirmed buprenorphine 12 mg-naloxone 3 mg 2 film sublingual DAILY 02/01/23 11/11/23 sublingual film clonidine HCl 0.1 mg tablet 0.1 mg PO TID 02/01/23 11/11/23 lisinopril 10 1 tablet PO DAILY 02/01/23 11/11/23 mg-hydrochlorothiazide 12.5 mg tablet lorazepam 0.5 mg tablet mg 11/11/23 Allergies Allergy/AdvReac Type Severity Reaction Status Date / Time No Known Allergies Allergy Unknown Verified 11/11/23 14:17 Review of Systems Review of Systems: All systems reviewed & are unremarkable except as noted in HPI and below Constitutional: Constitutional: Reports as per HPI and Reports body ache(s) Eyes: Eyes: Reports no additional eye complaints ENT: Reports system reviewed and no additional complaints, except as documented Cardiovascular: Cardiovascular: Reports no additional cardiovascular complaints, Denies chest pain and Denies dyspnea Respiratory: Respiratory: Reports no additional respiratory complaints, Denies chest congestion, Denies cough and Denies dyspnea Gastrointestinal: Gastrointestinal: Reports as per HPI, Denies abdominal pain, Reports nausea and Reports vomiting Musculoskeletal: Musculoskeletal: Reports no additional musculoskeletal complaints Integumentary/Breasts: Skin/Breast: Reports system reviewed and no additional complaints, except as docu Neurologic: Reports system reviewed and no additional complaints, except as documented Psychiatric: Psychiatric: Reports no additional psychiatric complaints Allergic/Immunologic: Allergic/Immunologic: Reports no additional allergic/immunologic complaints PMFSH Past Medical History Medical History History of hypertension Surgical History Surgical History No significant past surgical history Social History Social History Smoking status: Never smoker Alcohol intake: never Substance use: former Substance use type: opiates Living arrangements: with family Comments At the time of my signature, I reviewed and agree with the nursing past medical, surgical, social, and family history. There is no relevant family history pertinent to the patient complaint. Exam Const: General: cooperative, healthy appearing, comfortable, no acute distress, well developed, alert and well nourished Nutritional Appearance: well nourished Orientation/consciousness: patient oriented x3 Limitations: no limitations HENMT: Head: normal to inspection Ears: hearing grossly normal bilaterally, external ears normal, TM's normal bilaterally, EAC's normal, mastoids normal and no periauricular adenopathy Face/Nose/Sinus: Normal external nose present, Normal nares present, Normal nasal mucous membranes and turbinates present, normal facial exam, sinuses nontender and face symmetric Face and sinus: normal facial exam and face symmetric Mouth: Yes Normal oral and palatal mucosa present, Yes lip normal, Yes tongue normal and Yes moist mucous membranes Throat: posterior oropharynx normal, uvula midline, postnasal drainage and no uvular edema Eyes: General: appearance normal,
== END 2023-11-11 14:51 | disposition home or self-care (01) ==
PROVIDERS: Emergency Provider Nurse Practitioner
DX: J06.9 Acute upper respiratory infection, unspecified (principal); R11.0 Nausea; I10 Essential (primary) hypertension; Z20.822 Contact with and (suspected) exposure to COVID-19
CPT/HCPCS: 87426; 87804; 99213; G0463

== ENCOUNTER 2024-08-13 08:29 | Emergency (ER) | payer BC, SELFPAY ==
[2024-08-13 08:45] VITALS: BP 140/87; PULSE 62; RESP 18; TEMP 36.6; O2SAT 100
[2024-08-13 09:27] LABS: EDCOVIDSCREEN Negative (Negative); EDINFLUASCREEN Negative (Negative); EDINFLUBSCREEN Negative (Negative)
--- NOTE | 2024-08-13 09:31 | ED.URI ---
HPI - URI/Sore Throat General Chief Complaint: Upper Respiratory Infection Stated Complaint: sinus pressure Time Seen by Provider: 08/13/24 09:05 Source: patient Mode of arrival: ambulatory Limitations: no limitations History of Present Illness HPI Narrative: 34 yo F presents with c/o sinus congestion, sinus pressure, sinus headaches, fatigue for 2 days. Taking sudafed to treat sinus pressure. Reports congestion and pressure worse at night and in the morning. Afebrile. all systems reviewed and negative except as noted above. Related Data Home Medications Medication Instructions Recorded Confirmed buprenorphine 12 mg-naloxone 3 mg 2 film sublingual DAILY 02/01/23 11/11/23 sublingual film lorazepam 0.5 mg tablet mg 11/11/23 Allergies Allergy/AdvReac Type Severity Reaction Status Date / Time No Known Allergies Allergy Unknown Verified 08/13/24 08:54 Review of Systems Review of Systems: CONSTITUTIONAL: Denies fever, chills, or sweats. reports fatigue. EYES: Denies visual changes, redness, or discharge. ENT: Reports rhinorrhea, congestion. Denies sore throat, or otalgia. CARDIOVASCULAR: Denies chest pain, palpitations, or edema. RESPIRATORY: Denies cough or dyspnea. GASTROINTESTINAL: Denies abdominal pain, nausea, vomiting, or diarrhea. GENITOURINARY: Denies dysuria or hematuria. SKIN: Denies rash or itching. MUSCULOSKELETAL: Denies back pain, joint pain, or myalgia. NEUROLOGIC: Denies headache, numbness, or weakness. PSYCHIATRIC: Denies anxiety or depression. All other systems reviewed are negative, except as documented in HPI. PMFSH Past Medical History Medical History History of hypertension Surgical History Surgical History No significant past surgical history Social History Social History Smoking status: Never smoker Alcohol intake: never Substance use: former Substance use type: opiates Living arrangements: with family Comments At time of signature, agree with nursing past medical, surgical, social and family history. There is no relevant family history pertinent to the presenting complaint. Exam Narrative: GENERAL: This is a well-nourished, well-developed patient, in no apparent distress. HEAD: normocephalic, atraumatic. EYES: PERRL. Sclera clear/white. Vision is grossly intact. EARS: External ears normal, auditory canals clear and without drainage, TMs normal without perforation. Hearing grossly intact. NOSE: External nose normal with no obvious nasal discharge, nares without redness, no rhinorrhea. No sinus tenderness on palpation. THROAT: Mucous membranes moist, Mild erythema with postnasal drainage NECK: Neck supple, non-tender without lymphadenopathy, masses or thyromegaly. CARDIOVASCULAR: Regular rate and rhythm without murmurs, gallops, or rubs. RESPIRATORY: Clear to auscultation. Breath sounds equal bilaterally. No wheezes, rales, or rhonchi. SKIN: warm, Dry, intact with no suspicious lesions or rash, good texture and turgor. NEURO: awake, alert, and oriented to person, place and time. There were no obvious focal neurologic abnormalities. EXTREMITIES: No joint tenderness, effusion, or edema noted. Course Course Level of Care: Express Care Visit Vital Signs Vital signs: Vital Signs Temperature 36.6 C 08/13/24 08:45 Pulse Rate 62 08/13/24 08:45 Respiratory Rate 18 08/13/24 08:45 Blood Pressure 140/87 08/13/24 08:45 Pulse Oximetry 100 08/13/24 08:45 Oxygen Delivery Room Air 08/13/24 08:45 Temperature 36.6 C 08/13/24 08:45 Pulse Rate 62 08/13/24 08:45 Respiratory Rate 18 08/13/24 08:45 Blood Pressure 140/87 08/13/24 08:45 Pulse Oximetry 100 08/13/24 08:45 Oxygen Delivery Room Air 08/13/24 08:45 reviewed MDM - URI/Sore Throat MDM Narrative Medical decision making narrative: patient well-appearing. Negative COVID and influenza testing pain. Two days of symptoms. Clear postnasal drainage noted. Recommend treatment with [id number] medications. Patient is aware of diagnosis, understands and agrees to treatment plan. Anticipatory guidance given. Patient agrees to follow-up as directed and is aware of reasons to seek care at the emergency department. Portions of this record may have been created with voice recognition software Differential Diagnosis Differential diagnosis: Likely upper respiratory infection, sinusitis, viral infection and influenza Lab Data Labs: Lab Results 08/13/24 Range/Units 09:25 POC Influenza A Ag Negative (Negative) POC Influenza B Ag Negative (Negative) POC SARS CoV-2 Ag Negative (Negative) Discharge Plan Discharge Clinical Impression: Acute viral sinusitis Patient Disposition: Home, Self-Care Condition: Stable Instructions: Sinusitis (ED) Additional Instructions: your COVID and influenza test were negative today. Your symptoms are viral and may last 10-14 days. Take medications as prescribed. Take ibuprofen or Tylenol every 6-8 hours as needed for pain and fever. Drink at least 64 oz of water a day. See your doctor if symptoms are not improving. 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
== END 2024-08-13 09:22 | disposition home or self-care (01) ==
PROVIDERS: Emergency Provider Nurse Practitioner Family; Referring Provider Emergency Medicine
DX: J01.90 Acute sinusitis, unspecified (principal); Z20.822 Contact with and (suspected) exposure to COVID-19; I10 Essential (primary) hypertension
CPT/HCPCS: 87426; 87804; 99213; G0463